=== PATIENT | female | born 1965 | race Caucasian/White ===

== ENCOUNTER 2016-11-17 15:10 | Emergency (ER) | payer OTHER ==
[2016-11-17] MEDS ORDERED: DUONEB INH ONE ×3 (19:37→21:21)
[2016-11-17] MEDS ORDERED: PREDNISONE 50 MG TAB ONE (21:35)
[2016-11-17] MEDS ORDERED: PREDNISONE 10 MG TAB ONE (21:36)
== END 2016-11-17 23:35 | disposition home or self-care (01) ==
LOC: ER 15:10
DX: R06.00 Dyspnea, unspecified (principal); J20.9 Acute bronchitis, unspecified; J06.9 Acute upper respiratory infection, unspecified; Z79.899 Other long term (current) drug therapy; F41.1 Generalized anxiety disorder; E03.9 Hypothyroidism, unspecified; I10 Essential (primary) hypertension
CPT/HCPCS: 71020; 94640